=== PATIENT | male | born 1960 ===

== ENCOUNTER 2018-01-11 07:24 | Emergency (ER) | payer OTHER ==
[2018-01-11 07:42] VITALS: BP 120/71
--- NOTE | 2018-01-11 08:07 | UC ---
Skin Complaint HPI - HPI Summary HPI Summary: 57 yo male presents with tick bite to right triceps area first noticed this morning. He tells me that he was outside gardening with his yesterday and thinks that is when he acquired the tick. Tick was removed today. Denies fever, chills, or pain in the area. - History of Current Complaint Chief Complaint: [facility] Time Seen by Provider: 01/11/18 08:06 Stated Complaint: TICK BITE Hx Obtained From: Patient Onset/Duration: Sudden Onset Skin Exposure Onset/Duration: Hours Ago Pain Intensity: 0 - Allergy/Home Medications Allergies/Adverse Reactions: Allergies Allergy/AdvReac Type Severity Reaction Status Date / Time No Known Allergies Allergy Verified 01/11/18 07:43 Home Medications: Home Medications NK [No Home Medications Reported] 01/11/18 [History Confirmed 01/11/18] Review of Systems Constitutional: Negative Skin: Other - Tick bite right triceps Respiratory: Negative Cardiovascular: Negative Neurovascular: Negative Neurological: Negative Psychological: Negative All Other Systems Reviewed And Are Negative: Yes PMH/Surg Hx/FS Hx/Imm Hx - Additional Past Medical History Additional PMH: None Previously Healthy: Yes - Surgical History Surgical History: None - Family History Known Family History: Positive: None - Social History Occupation: Employed Full-time Lives: With Family Alcohol Use: Occasionally Substance Use Type: None Smoking Status (MU): Never Smoked Tobacco Physical Exam - Summary Physical Exam Summary: GENERAL: NAD. WDWN. No pain distress. SKIN: Right triceps: 3mm are of mild erythema. No remaining tick parts appreciated. No streaking, bleeding, or drainage. NECK: Supple. Nontender. No lymphadenopathy. CHEST: No accessory muscle use. Breathing comfortably and in no distress. CV: RRR. Without m/r/g. NEURO: Alert. CN II-XII grossly intact. PSYCH: Age appropriate behavior. Triage Information Reviewed: Yes Vital Signs: Initial Vital Signs Temp 97.4 F 01/11/18 07:40 Pulse 57 01/11/18 07:40 Resp 16 01/11/18 07:40 BP 120/71 01/11/18 07:40 Pulse Ox 100 01/11/18 07:40 Course/Dx - Course Course Of Treatment: Tick bite <24hours. No treatment needed. - Diagnoses Provider Diagnoses: Tick bite right arm Discharge - Sign-Out/Discharge Documenting (check all that apply): Discharge/Admit/Transfer - Discharge Plan Condition: Stable Disposition: HOME Patient Education Materials: Lyme Disease (ED), Tick Bite (ED) Referrals: Jagdeep James MD [Primary Care Provider] - Additional Instructions: TICK BITE: You have been bitten by a tick. Once the tick is removed, these "bites" usually cause no problems. Tick fever, tick paralysis, Brodnax Spotted fever, and Lyme disease are uncommon -- but you should mention this tick bite to your doctor if you develop unusual symptoms in the next several weeks. If you develop any of the following, please see your physician promptly: (1) Fever, chills, or generalized malaise associated with a headache. (2) A red round area at the site of the bite (or elsewhere) (3) Joint pain, joint swelling or generalized weakness. (4) Redness, swelling, or drainage at the site of the bite. - Billing Disposition and Condition Condition: STABLE Disposition: HOME
== END 2018-01-11 08:15 | disposition home or self-care (01) ==
LOC: UCEAST 07:24
DX: S40.861A Insect bite (nonvenomous) of right upper arm, initial encounter (principal); W57.XXXA Bitten or stung by nonvenomous insect and other nonvenomous arthropods, initial encounter; Y93.H2 Activity, gardening and landscaping; Y92.007 Garden or yard of unspecified non-institutional (private) residence as the place of occurrence of the external cause
CPT/HCPCS: 99201; G0463